=== PATIENT | female | born 1955 | race Native Hawaiian/Other Pacific Islander ===

== ENCOUNTER 2020-04-10 09:52 | Outpatient (CLI) | payer OTHER | END 2020-04-10 09:53 | disposition critical access hospital (66) | LOC: EMS 09:52 | PROVIDERS: ATTEND Surgery | DX: M54.2 Cervicalgia (principal); R07.9 Chest pain, unspecified; V89.2XXA Person injured in unspecified motor-vehicle accident, traffic, initial encounter; Y93.89 Activity, other specified; Y92.413 State road as the place of occurrence of the external cause | CPT/HCPCS: A0425; A0429 ==

== ENCOUNTER 2020-04-10 10:38 | Emergency (ER) | payer OTHER ==
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
[2020-04-10] MEDS ORDERED: NAPROXEN 250 MG TABLET PO STA (12:40)
[2020-04-10] MEDS ORDERED: ACETAMINOPHEN 325 MG TABLET PO STA (12:40)
[2020-04-10 12:59] VITALS: BP 137/72
== END 2020-04-10 12:58 | disposition home or self-care (01) ==
LOC: EDBD → EDUNIT# → ED 10:38
DX: S16.1XXA Strain of muscle, fascia and tendon at neck level, initial encounter (principal); S10.91XA Abrasion of unspecified part of neck, initial encounter; S20.212A Contusion of left front wall of thorax, initial encounter; V43.62XA Car passenger injured in collision with other type car in traffic accident, initial encounter; W22.12XA Striking against or struck by front passenger side automobile airbag, initial encounter; Y92.410 Unspecified street and highway as the place of occurrence of the external cause; I10 Essential (primary) hypertension
CPT/HCPCS: 71250; 72125; 99283; 99284; A9270